=== PATIENT | female | born 1980 | race Caucasian/White ===

== ENCOUNTER 2024-06-27 12:47 | Outpatient (OUT) | payer BC, SELFPAY | END 2024-06-27 12:48 | disposition home or self-care (01) | LOC: CARD 12:50 | PROVIDERS: PCP Family Medicine; Visit Provider Family Medicine | DX: R00.0 Tachycardia, unspecified (principal) | CPT/HCPCS: 93246 ==

== ENCOUNTER 2024-06-28 10:57 | Outpatient (OUT) | payer SELFPAY ==
--- OUTSIDE RECORDS SUMMARY | 2024-06-28 11:11 | XMS_ITS | CCD ---
Author Organization [facility] Care Team Providers Care Hand Potter Name Role Phone DR RENE IRIZARRY Primary Care Unavailable IFTIKHAR WATSON Admitting Unavailable IFTIKHAR WATSON Attending Unavailable DR CHITRA MEDRANO Consulting Unavailable IFTIKHAR WATSON Consulting Unavailable MADELIN PALACIOS Admitting Unavailable MADELIN PALACIOS Attending Unavailable DR RENE IRIZARRY Primary Care Unavailable JUAN C, DR LÓPEZ Admitting Unavailable JUAN C, DR LÓPEZ Attending Unavailable DR RENE IRIZARRY Primary Care Unavailable DR RENE IRIZARRY Consulting Unavailable JUAN C, DR LÓPEZ Admitting Unavailable JUAN C, DR LÓPEZ Attending Unavailable DR RENE IRIZARRY Primary Care Unavailable Problems Active Problems Problem Classification Problem Date Documented Date Episodic/Chronic Other connective tissue disease (1 source) Other enthesopathies, not elsewhere classified; Translations: [OTHER ENTHESOPATHIES NEC] Onset: 11-23-2021 Episodic Other non-traumatic joint disorders (3 sources) Pain in left wrist; Translations: [PAIN IN LEFT WRIST] Onset: 11-21-2021 Episodic Unclassified (3 sources) CONTACT W/AND (SUSP) EXPOS COVID-19; Translations: [CONTACT W/AND (SUSP) EXPOS COVID-19] Onset: 01-12-2021 Past or Other Problems Problem Classification Problem Date Documented Da te Episodic/Chronic Other non-traumatic joint disorders (4 sources) Pain in left hip; Translations: [PAIN IN LEFT HIP] Onset: 07-27-2021 Episodic Unclassified (1 source) CONTACT W/AND (SUSP) EXPOS COVID-19; Translations: [CONTACT W/AND (SUSP) EXPOS COVID-19] Onset: 01-07-2021 Results Test Name Value Interpretation Reference Range Facil ity Covid-19 PCR (CVDTBH)on SARS-CoV-2 (COVID-19) RNA CHRIS+probe Ql (Unsp spec) Not detected Normal NOT DETECTED The [facility] Comment on above: Result Comment: This test is not yet liban roved or cleared by the [place] FDA. When there are no FDA-approved or cleared tests available, and other criteria are met, FDA can make tests available under an emergency access mechanism called an Emergency Use Authorization (EUA). The EUA for this test is supported by the Tool And Die Designer of Health and Human Service's (HHS's) declaration that circumstances exist to justify the emergency use of in vitro diagnostics for the detection and/or diagnosis of the virus that causes COVID-19. This EUA will remain in effect (meaning this test can be used) for the duration of the COVID-19 declaration justifying emergency of IVDs, unless it is terminated or revoked by FDA (after which the test may no longer be used). When diagnostic testing is negative, the possibility of a false negative should be considered in the context of a patient's recent exposures and the presence of clinical signs and symptoms consistent with SARS-CoV-2. Performed By: #### C [facility] #### [facility] [address] [place], [place] [id number] Natasha Polk Encounters Encounter Date Encounter Type Care Provider Facility Start: 11-21-2021 End: 11-21-[address] RENE IRIZARRY Facility:[facility] Start: 07-28-[address] RENE IRIZARRY Facility :[facility] Start: 07-27-2021 End: 07-28-2021 ambulatory MADELIN PALACIOS Facility:[facility] Start: 01-07-2021 End: 01-07-[address] RENE IRIZARRY Facility:[facility]1 Payers Date Payer Category Payer Unknown [id number] .. [id number] 1980 Unknown [id number] 1978 Unknown [id number] 1978 Unknown [id number] 1959 Unknown [id number] Clinical Note 11-21-2021 Note Date & Type Note Facility 11-21-2021 Note PROCEDURE: XR WRIST LT MIN 3 V HISTORY: Pain ; acute left wrist pain, left thumb pain COMPARISON: None. FINDINGS: BONES:No fracture, acute abnormality, or significant arthropathy. SOFT TISSUES:No visible soft tissue swelling. EFFUSION:None visible. OTHER: Negative. IMPRESSION: 1. No acute bone abnormality. Electronically authenticated by: CHITRA MEDRANO Date: 2021-11-21 15:47 [facility] Summary Purpose Family History No Family History Records Found Advance Directives No Advanced Directives Records Found Additional Source Comments INFORMATION SOURCE (unrecogn ized section and content) DATE CREATED AUTHOR 11/23/2021 The [facility] FOR RECORDS PERTAINING TO PATIENTS WHO ARE OR HAVE BEEN ENROLLED IN A CHEMICAL DEPENDENCY/SUBSTANCEABUSE PROGRAM, SOME INFORMATION MAY BE OMITTED. This clinical summary was aggregated from multiple sources. Caution should be exercised in using it in the provision of clinical care. This summary normalizes information from multiple sources, and as a consequence, information in this document may materially change the coding, format and clinical context of patient data. In addition, data may be omitted in some cases. CLINICAL DECISIONS SHOULD BE BASED ON THE PRIMARY CLINICAL RECORDS. [facility] [employer] [facility]. provides no warranty or guarantee of the accuracy or completeness of information in this document.
[2024-06-28 11:18] LABS: Basophils Absolute Auto 0.1 10^3/uL (0.0-0.1); Basophils Percent Auto 0.8 % (0.2-2.0); Eosinophils Absolute Auto 0.3 10^3/uL (0.0-0.7); Eosinophils Percent Auto 5.4 % (0.9-7.0); Hematocrit 39.7 % (36.0-48.0); Hemoglobin 13.4 g/dL (12.0-16.0); Immature Granulocytes Abs Auto 0.01 10^3/uL (0.00-0.03); Immature Granulocytes Pct Auto 0.2 % (0.0-0.5); Lymphocytes Absolute Auto 2.4 10^3/uL (1.2-3.8); Lymphocytes Percent Auto 38.6 % (20.5-60.0); Mean Corpuscular HGB Conc 33.8 g/dL (29.9-35.2); Mean Corpuscular Hemoglobin 29.8 pg (26.7-34.0); Mean Corpuscular Volume 88.2 fL (81.0-99.0); Mean Platelet Volume 9.1 fL (9.5-13.5); Monocytes Absolute Auto 0.4 10^3/uL (0.3-0.8); Neutrophils Absolute Auto 3.1 10^3/uL (1.4-6.5); Platelet Count 341 10^3/uL (150-450); Red Cell Distribution Width 13.2 % (11.0-15.0); White Blood Count 6.3 10^3/uL (4.0-11.0)
[2024-06-28 13:33] LABS: Alanine Aminotransferase 34 U/L (14-59); Albumin Globulin Ratio 1.1; Albumin Level 4.2 g/dL (3.4-5.0); Alkaline Phosphatase 93 U/L (46-116); Anion Gap 7.7; Aspartate Amino Transferase 29 U/L (15-37); BUN Creatinine Ratio 11.5; Bilirubin Total 0.3 mg/dL (0.2-1.0); Calcium 10.1 mg/dL (8.5-10.1); Carbon Dioxide 30.6 mmol/L (21.0-32.0); Chloride 102 mmol/L (98-107); Chol HDL Ratio 3.4; Cholesterol 237 mg/dL (<=200); Estimated GFR (African America >60 (>=60); Estimated GFR (Non-African Ame >60 (>=60); Free T3 3.37 pg/mL (2.18-3.98); Globulin 3.9 g/dL; Glucose 83 mg/dL (74-106); HDL Cholesterol 70 mg/dL (40-60); Potassium 4.3 mmol/L (3.5-5.1); Sodium 136 mmol/L (136-145); Thyroid Stimulating Hormone 1.407 uIU/mL (0.358-3.740); Total Protein 8.1 g/dL (6.4-8.2); Triglycerides 134 mg/dL (<=150); VLDL CHOLESTEROL 26.8 mg/dL
[2024-06-28 13:40] LABS: Estimated Average Glucose 108 mg/dL; Glycohemoglobin A1C 5.4 % (4.5-6.2)
[2024-06-29 10:11] LABS: Insulin 6.8 uIU/mL (2.6-24.9)
== END 2024-06-28 10:58 | disposition home or self-care (01) ==
PROVIDERS: PCP Family Medicine; Visit Provider Family Medicine
DX: Z00.00 Encounter for general adult medical examination without abnormal findings (principal)
CPT/HCPCS: 36415; 80053; 80061; 83036; 83525; 83540; 84436; 84443; 84481; 85025

== ENCOUNTER 2024-06-29 21:39 | Emergency (ER) | payer SELFPAY ==
[2024-06-29] VITALS (20 sets, daily range): BP systolic 111–153; BP diastolic 74–103; PULSE 78–101; O2SAT 76–100; BMI 22.8
--- OUTSIDE RECORDS SUMMARY | 2024-06-29 21:44 | XMS_ITS | CCD ---
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 When there are no FDA-approved or cleared tests available, and other criteria are met, FDA can make tests available under an emergency access mechanism called an Emergency Use Authorization (EUA). The EUA for this test is supported by the Broadband Engineer of Health and Human Service's (HHS's) declaration [...] consistent with SARS-CoV-2. Performed By: #### C [facility] #### [facility] [address] [place], [place] [id number] Natasha Polk Encounters Encounter Date Encounter Type Care Provider Facility Start: 11-21-2021 End: 11-21-[address] RENE IRIZARRY Facility:[facility]1 Start: 07-28-[address] RENE IRIZARRY Facility :[facility]1 Start: 07-27-2021 End: 07-28-2021 ambulatory MADELIN PALACIOS Facility:[facility]1 Start: 01-07-2021 End: 01-07-[address] RENE IRIZARRY Facility:H1 Payers Date Payer Category Payer Unknown [id number] .. [id number] 1980 Unknown [id number] 1978 Unknown [id number] 1978 Unknown [id number] 1959 Unknown [id number] Clinical Note 11-21-2021 Note Date & Type Note Facility 11-21-2021 Note PROCEDURE: XR WRIST LT MIN 3 V HISTORY: Pain ; acute left wrist pain, left thumb pain COMPARISON: None. FINDINGS: BONES:No fracture, acute abnormality, or significant arthropathy. SOFT TISSUES:No visible soft tissue swelling. EFFUSION:None visible. OTHER: Negative. IMPRESSION: 1. No acute bone abnormality. Electronically authenticated by: CHITRA MEDRANO Date: 2021-11-21 15:[address] [facility] Summary Purpose Family History No Family History Records Found Advance Directives No Advanced Directives Records Found Additional Source Comments INFORMATION SOURCE (unrecogn ized section and content) DATE CREATED AUTHOR 11/23/2021 The [facility] FOR RECORDS PERTAINING TO PATIENTS WHO ARE [...] BE BASED ON THE PRIMARY CLINICAL RECORDS. [facility] [employer] [facility]. provides no warranty or guarantee of the accuracy or completeness of information in this document.
--- NOTE | 2024-06-29 22:04 | ED.CHESTPAI1 ---
HPI - Chest Pain General Chief Complaint: Chest Pain Stated Complaint: Chest Pain Time Seen by Provider: 06/29/24 22:01 Source: patient Mode of arrival: walk-in Limitations: no limitations History of Present Illness HPI narrative: presents complaining of chest pressure for 30 min. feels like squeezing .has associated nausea. No radiation. No dyspnea. Family history of heart disease. Father with PA in his 50s she denies history of heart disease. States recently her heart rate has drop into the 30s and she is now wearing a monitor Related Data Allergies Allergy/AdvReac Type Severity Reaction Status Date / Time No Known Drug Allergies Allergy Verified 06/29/24 21:49 Review of Systems ROS Status of ROS 10 or more systems reviewed and unremarkable except as noted in history and below PFSH PFSH Social History Little interest or pleasure in doing things: not at all Feeling down, depressed, or hopeless: not at all Exam Constitutional Vital Signs, click to edit/add: Last Vital Signs Pulse 83 06/30/24 01:00 Resp 21 H 06/30/24 01:00 BP 116/87 06/30/24 01:00 Pulse Ox 98 06/30/24 01:00 O2 Del Method Room Air 06/29/24 21:49 Common normals: no apparent distress, average body habitus, oriented x3, no limitations, healthy appearing, alert and well nourished [facility] Common normals: normocephalic and head/scalp atraumatic Respiratory Common normals: normal respiratory effort, no retractions, no use of accessory muscles and clear to auscultation bilaterally Cardio Common normals: regular rate, regular rhythm, S1 normal heart sound and S2 normal heart sound GI Common normals: Normal to inspection, nondistended, normoactive bowel sounds present, soft to palpation and non-tender Extremity Common normals: normal to inspection and full ROM Neuro Common normals: oriented x3, CN's II-XII intact bilaterally, moves all extremities and no focal motor deficits Psych Appearance: grossly normal Course Vital Signs Vital signs: Vital Signs Pulse Rate 90 06/29/24 21:49 Respiratory Rate 18 06/29/24 21:49 Blood Pressure 147/99 H 06/29/24 21:49 Pulse Oximetry 97 06/29/24 21:49 Oxygen Delivery Method Room Air 06/29/24 21:49 Pulse Rate 83 06/30/24 01:00 Respiratory Rate 21 H 06/30/24 01:00 Blood Pressure 116/87 06/30/24 01:00 Pulse Oximetry 98 06/30/24 01:00 Oxygen Delivery Method Room Air 06/29/24 21:49 MDM - Chest Pain MDM Narrative Medical decision making narrative: patient presents complaining of pressure sensation of her chest. also states recent diagnosis of bradycardia for which she is now wearing a heart monitor. Her EKG is normal. serial troponin < 4 both times. CTA chest without PE. Did demonstrate few nodules that may be inflammatory or infectious. she has not clinical findings to support infection. She is feeling better. Not sure of the cause of her pain . Would not expect the nodules on her CT to cause chest pressure that resolves. Patient discharged home to follow up with her family doctor Lab Data Labs: Lab Results 06/29/24 06/30/24 Range/Units 21:54 00:36 WBC 9.0 (4.0-11.0) 10^3/uL RBC 4.70 (4.20-5.40) 10^6/uL Hgb 13.6 (12.0-16.0) g/dL Hct 40.7 (36.0-48.0) % MCV 86.6 (81.0-99.0) fL MCH 28.9 (26.7-34.0) pg MCHC 33.4 (29.9-35.2) g/dL RDW 12.9 (11.0-15.0) % Plt Count 398 (150-450) 10^3/uL MPV 9.2 L (9.5-13.5) fL Neut % (Auto) 44.7 (43.0-75.0) % Lymph % (Auto) 43.9 (20.5-60.0) % Clayton % (Auto) 6.5 (1.7-12.0) % Eos % (Auto) 4.4 (0.9-7.0) % Baso % (Auto) 0.4 (0.2-2.0) % Neut # (Auto) 4.0 (1.4-6.5) 10^3/uL Lymph # (Auto) 4.0 H (1.2-3.8) 10^3/uL Clayton # (Auto) 0.6 (0.3-0.8) 10^3/uL Eos # (Auto) 0.4 (0.0-0.7) 10^3/uL Baso # (Auto) 0.0 (0.0-0.1) 10^3/uL Abs Immat Gran (auto) 0.01 (0.00-0.03) 10^3/uL Imm/Tot Granulo (auto) 0.1 (0.0-0.5) % D-Dimer 0.37 (<=0.59) mg/L FEU Sodium 138 (136-145) mmol/L Potassium 3.7 (3.5-5.1) mmol/L Chloride 101 (98-107) mmol/L Carbon Dioxide 25.9 (21.0-32.0) mmol/L Anion Gap 14.8 BUN 11.0 (7.0-18.0) mg/dL Creatinine 0.91 (0.55-1.02) mg/dL Est GFR ( Amer) >60 (>=60) Est GFR (Non-Af Amer) >60 (>=60) BUN/Creatinine Ratio 12.1 Glucose 92 (74-106) mg/dL Calcium 10.4 H (8.5-10.1) mg/dL Total Bilirubin 0.3 (0.2-1.0) mg/dL AST 28 (15-37) U/L ALT 33 (14-59) U/L Alkaline Phosphatase 99 (46-116) U/L Troponin I High Sens <4.0 L <4.0 L (4.0-51.3) pg/mL Total Protein 8.3 H (6.4-8.2) g/dL Albumin 4.4 (3.4-5.0) g/dL Globulin 3.9 g/dL Albumin/Globulin Ratio 1.1 Imaging Data Chest x-ray: Radiologist's impression: ITS Impressions Chest X-Ray 06/29/24 22:07 IMPRESSION: 1. Small left pleural effusion with hazy left basilar opacity. This likely reflects atelectasis however an infectious/inflammatory process cannot entirely be excluded. 2. Mildly enlarged cardiomediastinal silhouette. Electronically authenticated by: SREE THOMAS Date: 06/29/2024 23:33 Chest CTA 06/29/24 23:54 IMPRESSION: 1. No evidence for pulmonary embolism. 2. Suggestion of subtle diffuse bilateral centrilobular groundglass nodules, upper lobes greater than lower. This may represent infectious or inflammatory etiology. 3. Mild cardiomegaly. Electronically authenticated by: BENJAMIN STRANGE Date: 06/30/2024 00:49 Discharge Plan Discharge Chief Complaint: Chest Pain Clinical Impression: Atypical chest pain Patient Disposition: Home, Self-Care Print Language: Mongolian Instructions: Noncardiac Chest Pain (ED) Additional Instructions: follow up with Dr Vidal early next week for recheck Referrals: Chidi Vidal MD [Primary Care Provider] - 1 week
--- NOTE | 2024-06-29 22:07 | XR_ITS ---
The [address] [address] Patient Name: KIANA CHEW MRN: [id number] date: 1980 Sex: F Assigned Patient Location: ER Current Patient Location: ER Accession/Order Number: [id number] Exam Date: 06/29/2024 22:50 Report Date: 06/29/2024 23:33 At the request of: BHARTI RODAS Procedure: XR chest 1V EXAM: XR chest 1V HISTORY: chest pain COMPARISON: None TECHNIQUE: AP portable upright view of the chest FINDINGS: Hazy left basilar opacity. Remainder of the lungs are clear. Small left pleural effusion. No pneumothorax. Mildly enlarged cardiomediastinal silhouette. No pulmonary vascular congestion. No acute osseous or soft tissue abnormalities. XR/XR chest 1V IMPRESSION: 1. Small left pleural effusion with hazy left basilar opacity. This likely reflects atelectasis however an infectious/inflammatory process cannot entirely be excluded. 2. Mildly enlarged cardiomediastinal silhouette. Electronically authenticated by: SREE THOMAS Date: 06/29/2024 23:33
[2024-06-29] MEDS: NITROGLYCERIN 0.4 MG BOTTLE PO (22:24)
[2024-06-29 22:28] LABS: Basophils Percent Auto 0.4 % (0.2-2.0); Eosinophils Absolute Auto 0.4 10^3/uL (0.0-0.7); Eosinophils Percent Auto 4.4 % (0.9-7.0); Hematocrit 40.7 % (36.0-48.0); Hemoglobin 13.6 g/dL (12.0-16.0); Immature Granulocytes Abs Auto 0.01 10^3/uL (0.00-0.03); Immature Granulocytes Pct Auto 0.1 % (0.0-0.5); Lymphocytes Percent Auto 43.9 % (20.5-60.0); Mean Corpuscular HGB Conc 33.4 g/dL (29.9-35.2); Mean Corpuscular Hemoglobin 28.9 pg (26.7-34.0); Mean Corpuscular Volume 86.6 fL (81.0-99.0); Mean Platelet Volume 9.2 fL (9.5-13.5); Monocytes Absolute Auto 0.6 10^3/uL (0.3-0.8); Monocytes Percent Auto 6.5 % (1.7-12.0); Neutrophils Percent Auto 44.7 % (43.0-75.0); Platelet Count 398 10^3/uL (150-450); Red Cell Distribution Width 12.9 % (11.0-15.0)
[2024-06-29 22:40] LABS: D Dimer 0.37 mg/L FEU (<=0.59)
[2024-06-29 22:50] LABS: Alanine Aminotransferase 33 U/L (14-59); Albumin Globulin Ratio 1.1; Albumin Level 4.4 g/dL (3.4-5.0); Alkaline Phosphatase 99 U/L (46-116); Anion Gap 14.8; Aspartate Amino Transferase 28 U/L (15-37); BUN Creatinine Ratio 12.1; Bilirubin Total 0.3 mg/dL (0.2-1.0); Calcium 10.4 mg/dL (8.5-10.1); Carbon Dioxide 25.9 mmol/L (21.0-32.0); Chloride 101 mmol/L (98-107); Estimated GFR (African America >60 (>=60); Estimated GFR (Non-African Ame >60 (>=60); Globulin 3.9 g/dL; Glucose 92 mg/dL (74-106); Potassium 3.7 mmol/L (3.5-5.1); Sodium 138 mmol/L (136-145); Total Protein 8.3 g/dL (6.4-8.2); Troponin I High Sensitivity <4.0 pg/mL (4.0-51.3)
--- NOTE | 2024-06-29 23:54 | CT_ITS ---
[address] [address] Patient Name: KIANA CHEW MRN: [id number] date: 1980 Sex: F Assigned Patient Location: ER Current Patient Location: [facility] Accession/Order Number: [id number] Exam Date: 06/29/2024 23:59 Report Date: 06/30/2024 00:49 At the request of: BHARTI RODAS Procedure: CT angio chest EXAM: CT angio chest HISTORY: chest pain COMPARISON: Chest radiograph 06/29/2024 TECHNIQUE: CT angiography of the pulmonary arteries following the administration of intravenous contrast. Coronal and sagittal MIP (maximum intensity projection) images were performed. Dose reduction techniques were achieved by using automated exposure control and/or adjustment of mA and/or kV according to patient size and/or use of iterative reconstruction technique. FINDINGS: The study is technically adequate for the diagnosis of pulmonary embolism, with good contrast bolus to the pulmonary arteries. TUBES AND IMPLANTS: None. CHEST WALL AND LOWER NECK: Unremarkable. BONES: No suspicious lesions. UPPER ABDOMEN: Unremarkable. MEDIASTINUM AND TOBIN: Unremarkable. AORTA: No aneurysm or dissection PULMONARY ARTERIES: No embolism HEART: Mild cardiomegaly CORONARY ARTERIES: No coronary artery calcifications. LUNG AND AIRWAYS: Suggestion of subtle diffuse bilateral centrilobular groundglass nodules, upper lobes greater than lower. PLEURA: Unremarkable. CT/CT angio chest IMPRESSION: 1. No evidence for pulmonary embolism. 2. Suggestion of subtle diffuse bilateral centrilobular groundglass nodules, upper lobes greater than lower. This may represent infectious or inflammatory etiology. 3. Mild cardiomegaly. Electronically authenticated by: BENJAMIN STRANGE Date: 06/30/2024 00:49
[2024-06-30] VITALS (9 sets, daily range): BP systolic 115–126; BP diastolic 85–88; PULSE 82–102; O2SAT 82–100
--- NOTE | 2024-06-30 00:42 | ECG_ITS ---
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
[2024-06-30 01:01] LABS: Troponin I High Sensitivity <4.0 pg/mL (4.0-51.3)
== END 2024-06-30 01:21 | disposition home or self-care (01) ==
PROVIDERS: Emergency Provider Internal Medicine; PCP Family Medicine
DX: R07.89 Other chest pain (principal)
CPT/HCPCS: 36415; 71045; 71275; 80053; 84484; 85025; 85378; 93005; 99285; Q9967